=== PATIENT | female | born 1980 | race African-American/Black ===

== ENCOUNTER 2018-10-15 10:14 | Emergency (ER) | payer MEDICAID, OTHER ==
[2018-10-15 10:35] VITALS: BP 124/82
--- NOTE | 2018-10-15 11:15 | UC ---
Back Pain HPI - HPI Summary HPI Summary: 4 DAYS AGO WHILE AT WORK PATIENT WAS ATTEMPTING TO BREAK DOWN PATIO TABLES WHEN SHE YANKED ON AN UMBRELLA THAT WAS STUCK. THE NEXT DAY HAD EXCRUCIATING LOW BACK PAIN. SHE DENIES ANY NUMBNESS OR TINGLING. NO SADDLE ANESTHESIA OR LOSS OF BOWEL/BLADDER CONTROL. NO PREVIOUS HISTORY OF BACK INJURY. PAIN IS KEEPING HER FROM SLEEPING. - History of Current Complaint Chief Complaint: UCBackPain Stated Complaint: BACK INJURY Time Seen by Provider: 10/15/18 10:42 Hx Obtained From: Patient Hx Last Menstrual Period: 10/09/18 Onset/Duration: Gradual Onset, Lasting Days, Still Present Timing: Constant Severity Initially: Moderate Severity Currently: Moderate Pain Intensity: 8 Pain Scale Used: 0-10 Numeric Back Pain: Is Discrete @ - LOW BACK Character: Sharp, Spasmodic Aggravating Factor(s): Movement Alleviating Factor(s): Rest, Position Associated Signs And Symptoms: Negative: Weakness, Numbness, Tingling, Bladder Incontinence, Bowel Incontinence - Allergies/Home Medications Allergies/Adverse Reactions: Allergies Allergy/AdvReac Type Severity Reaction Status Date / Time No Known Allergies Allergy Verified 10/15/18 10:35 Home Medications: Home Medications Amlodipine Besylate/Benazepril [Amlodipine-Benazepril 5-10 mg] 1 each PO [History] Latuda 60 mg PO DAILY 10/15/18 [History Confirmed 10/15/18] traZODone TAB* [Desyrel TAB*] 1 tab PO DAILY 10/15/18 [History Confirmed ] PMH/Surg Hx/FS Hx/Imm Hx Cardiovascular History: Hypertension - Surgical History Surgical History: Yes Surgery Procedure, Year, and Place: HERNIA X2 2010, 2012 WISDOM TEETH - Family History Known Family History: Positive: Non-Contributory - Social History Alcohol Use: None Substance Use Type: None Smoking Status (MU): Former Smoker Length of Time of Smoking/Using Tobacco: 120YRS Have You Smoked in the Last Year: No When Did the Patient Quit Smoking/Using Tobacco: 2009 Review of Systems All Other Systems Reviewed And Are Negative: Yes Constitutional: Positive: Negative Skin: Positive: Negative Respiratory: Positive: Negative Cardiovascular: Positive: Negative Gastrointestinal: Positive: Negative Musculoskeletal: Positive: Other: - LOW BACK PAIN Physical Exam Triage Information Reviewed: Yes Appearance: Well-Appearing, No Pain Distress, Well-Nourished Vital Signs: Initial Vital Signs Temp 98.3 F 10/15/18 10:32 Pulse 87 10/15/18 10:32 Resp 16 10/15/18 10:32 BP 124/82 10/15/18 10:32 Pulse Ox 100 10/15/18 10:32 Vital Signs Reviewed: Yes Eyes: Positive: Conjunctiva Clear ENT: Positive: Hearing grossly normal Neck: Positive: Supple Respiratory: Positive: No respiratory distress, No accessory muscle use Cardiovascular: Positive: Pulses Normal Abdomen Description: Positive: Soft Musculoskeletal: Positive: No Edema, ROM Limited @ - BACK Neurological: Positive: Alert Psychological: Positive: Age Appropriate Behavior Skin: Negative: Rashes Back Pain Course/Dx - Differential Dx/Diagnosis Provider Diagnosis: Low back strain Discharge - Sign-Out/Discharge Documenting (check all that apply): Patient Departure All imaging exams completed and their final reports reviewed: No Studies - Discharge Plan Condition: Stable Disposition: HOME Prescriptions: Cyclobenzaprine TAB* [Flexeril TAB*] 10 mg PO BID PRN #30 tab PRN Reason: Pain Naproxen [Naproxen 500 mg tab] 500 mg PO BID PRN #30 tablet PRN Reason: Pain Patient Education Materials: Low Back Strain (ED) Forms: *Work Release Referrals: Marisela Villela MD [Primary Care Provider] - If Needed Additional Instructions: BE SURE TO GO THROUGH SLOW RANGE OF MOTION AND STRETCHING EXERCISES DAILY YOU ARE ABLE TO PREVENT STIFFENING UP AND MAKING THE DISCOMFORT WORSE. GO TO THE ED WITHOUT FAIL IF YOU DEVELOP WORSENING NUMBNESS/TINGLING IN YOUR LEGS, NUMBNESS IN THE GENITAL REGION, LOSS OF BOWEL/BLADDER CONTROL, INTOLERABLE PAIN OR ANY OTHER CONCERNING SYMPTOMS. - Billing Disposition and Condition Condition: STABLE Disposition: Home
== END 2018-10-15 11:28 | disposition home or self-care (01) ==
LOC: UCEAST 10:14
DX: S39.012A Strain of muscle, fascia and tendon of lower back, initial encounter (principal); X50.0XXA Overexertion from strenuous movement or load, initial encounter; Y93.89 Activity, other specified; Y92.89 Other specified places as the place of occurrence of the external cause; Y99.0 Civilian activity done for income or pay; I10 Essential (primary) hypertension
CPT/HCPCS: 99202; G0463

== ENCOUNTER 2019-03-17 13:16 | Emergency (ER) | payer OTHER ==
--- OUTSIDE RECORDS SUMMARY | 2019-03-17 13:23 | XMS REPORT | Summary of Care ---
:1980 Author Organization [facility] Address [address] [address] Care Team Providers Name Role Phone Marisela Villela Primary Care Provider Reason for Visit Reason Comments Conjunctivitis pt states that son has had pink eye since the , pt's started in L eye approx. New year, now it is in the R eye (woke up this morning and R eye was matted shut) Encounter Details Date Type Department Care Team Description 03/14/2019 Office Visit [place] [facility] Duane Morris Bacterial conjunctivitis Medicine TYRONE Griffin of both eyes (Primary [address]) [place] [address] [place] [address] [phone] Allergies No Known Allergiesdocumented as of this encounter (statuses as of 03/14/2019) Medications Medication Sig Dispensed Refills Start Date End Date Status clonazePAM (KLONOPIN) Take 1 mg by mouth 0 Active 1 MG Oral Tab DAILY NEEDED. LATUDA 60 MG Oral Tab 0 07/23/2016 Active trazodone (DESYREL) 0 07/23/2016 Active 100 MG Oral Tab hydrocortisone Place 1 Appl per 28.35 g 2 08/28/2017 Active (ANUSOL-HC,PROCTOSOL-H rectum FOUR TIMES C) 2.5 % Rectal DAILY NEEDED CreamIndications: (hemorrhoid pain). Hemorrhoids, unspecified hemorrhoid type albuterol HFA Take 2 Puffs by 1 Inhaler 3 09/03/2018 Active (VENTOLIN) 108 (90 inhalation EVERY Base) MCG/ACT FOUR HOURS Inhalation Aero NEEDED (for SolnIndications: bronchospasm). Asthma, intermittent, with acute exacerbation amlodipine-benazepril TAKE ONE CAPSULE 90 Cap 3 10/11/2018 Active (LOTREL) 5-20 MG Oral BY MOUTH ONCE CapIndications: DAILY Essential hypertension, benign trimethoprim-polymyxin Place 1 Drop in 1 Bottle 0 03/14/2019 Active B (POLYTRIM) 57766-0.1 both eyes EVERY UNIT/ML-% Ophthalmic FOUR HOURS. SolutionIndications: Bacterial conjunctivitis of both eyes documented as of this encounter (statuses as of 03/14/2019) Active Problems Problem Noted Date BMI 36.0-36.9,adult 08/01/2016 Essential hypertension, benign 06/12/2013 Bipolar I disorder 06/12/2013 Mild or unspecified pre-eclampsia, unspecified as to episode of care 2011 Asthma, intermittent 07/01/2010 documented as of this encounter (statuses as of 03/14/2019) Resolved Problems Problem Noted Date Resolved Date Allergic rhinitis due to dust 05/31/2010 05/30/2011 documented as of this encounter (statuses as of 03/14/2019) Immunizations Name Administration Dates Next Due Influenza (IM) Preservative Free 12/17/2009 documented as of this encounter Social History Tobacco Use Types Packs/Day Years Used Date Former Smoker Cigarettes 0.25 12 Smokeless Tobacco: Never Used Comments: quit Dec 2008. Alcohol Use Drinks/Week oz/Week Comments Yes 0 Standard drinks or equivalent 0.0 infrequent Sex Assigned at Date Recorded Not on file Job Start Date Occupation Industry Not on file Not on file Not on file Travel History Travel Start Travel End No recent travel history available. documented as of this encounter Last Filed Vital Signs Vital Sign Reading Time Taken Comments Blood Pressure 113/68 03/14/2019 9:18 AM EST Pulse 58 03/14/2019 9:18 AM EST Temperature 36.6 03/14/2019 9:18 AM EST C (97.8 F) Respiratory Rate - - Oxygen Saturation 98% 03/14/2019 9:18 AM EST Inhaled Oxygen Concentration - - Weight 89.8 kg (198 lb) 03/14/2019 9:18 AM EST Height 157.5 cm (5' 2") 03/14/2019 9:18 AM EST Body Mass Index 36.21 03/14/2019 9:18 AM EST documented in this encounter Patient Instructions Patient InstructionsDuane Morris PA - 03/14/2019 9:20 AM ESTPlease use 1 drop each eye every 4 hours for seven days. If it has improved over three days, you may reduce the dose to one drop each eye for the remainder of the days. MAKE SURE YOU COMPLETE 7 DAYS OF TREATMENT. documented in this encounter Progress Notes Duane Morris PA - 03/14/2019 9:20 AM EST PATIENT: Masha Galarza : 1980 DATE OF SERVICE: 03/14/2019 CHIEF COMPLAINT: Chief Complaint Patient presents with Conjunctivitis pt states that son has had pink eye since the , pt's started in L eye approx. New year, now itis in the R eye (woke up this morning and R eye was matted shut) Subjective HISTORY OF PRESENT ILLNESS: Masha Galarza is a 39-y.o. female. Masha presents to the office complains of bilateral eye redness with pain, itching and discharge.She states that her son has recently been treated for pink eye. The condition has been progressivelyworsening since. She denies trauma to the eye or recent exposure to sexually transmitted diseases. No history of immunocompromised. Past Medical History: Diagnosis Date Allergic rhinitis Anemia is on iron suplement Asthma childhood, occ with exercise in cold weather. Tobacco use disorder Family History Adopted: Yes Current Outpatient Medications Medication Sig albuterol HFA (VENTOLIN) 108 (90 Base) MCG/ACT Inhalation Aero Soln Take 2 Puffs by inhalation EVERY FOUR HOURS NEEDED (for bronchospasm). amlodipine-benazepril (LOTREL) 5-20 MG Oral Cap TAKE ONE CAPSULE BY MOUTH ONCE DAILY clonazePAM (KLONOPIN) 1 MG Oral Tab Take 1 mg by mouth DAILY NEEDED. hydrocortisone (ANUSOL-HC,PROCTOSOL-HC) 2.5 % Rectal Cream Place 1 Appl per rectum FOUR TIMESDAILY NEEDED (hemorrhoid pain). LATUDA 60 MG Oral Tab trazodone (DESYREL) 100 MG Oral Tab trimethoprim-polymyxin B (POLYTRIM) 22929-5.1 UNIT/ML-% Ophthalmic Solution Place 1 Drop in both eyes EVERY FOUR HOURS. No current facility-administered medications for this visit. No Known Allergies Social History Socioeconomic History Marital status: Single Spouse name: Not on file Number of children: Not on file Years of education: Not on file Highest education level: Not on file Occupational History Not on file Social Needs Financial resource strain: Not on file Food insecurity Worry: Not on file Inability: Not on file Transportation needs Medical: Not on file Non-medical: Not on file Tobacco Use Smoking status: Former Smoker Packs/day: 0.25 Years: 12.00 Pack years: 3.00 Types: Cigarettes Smokeless tobacco: Never Used Tobacco comment: quit Dec 2008. Substance and Sexual Activity Alcohol use: Yes Alcohol/week: 0.0 standard drinks Comment: infrequent Drug use: No Sexual activity: Not Currently Partners: Female, Male Lifestyle Physical activity Days per week: Not on file Minutes per session: Not on file Stress: Not on file Relationships Social connections Talks on phone: Not on file Gets together: Not on file Attends orthodoxy service: Not on file Active member of club or organization: Not on file Attends meetings of clubs or organizations: Not on file Relationship status: Not on file Intimate partner violence Fear of current or ex partner: Not on file Emotionally abused: Not on file Physically abused: Not on file Forced sexual activity: Not on file Other Topics Concern Back Care Not Asked Bike Helmet Not Asked Blood Transfusions No Caffeine Concern Not Asked Exercise Not Asked Hobby Hazards No International Travel Not Asked Service Not Asked Occupational Exposure Not Asked Seat Belt Not Asked Self-Exams Not Asked Sleep Concern Not Asked Special Diet Not Asked Stress Concern Not Asked Weight Concern Not Asked Social History Narrative Single, lives in [place] with 1 adopted child. (sister's daughter) Son born Feb 2011 --[place]. Quit tobacco 08/2009. 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 HENT: Negative for congestion, ear discharge, ear pain and nosebleeds. Eyes: Positive for pain, discharge and redness. Negative for blurred vision, double vision and photophobia. Skin: Negative for itching and rash. Neurological: Negative for dizziness and headaches. Objective PHYSICAL EXAM: VITALS: BP 113/68 (BP Location: Right arm, Patient Position: Sitting) | Pulse 58 | Temp 97.8 F (36.6 C) (Tympanic) | Ht 5' 2" (1.575 m) | Wt 198 lb (89.8 kg) | SpO2 98% | BMI 36.21 kg/m Body mass index is 36.21 kg/m . Physical Exam Constitutional: General: She is not in acute distress. Appearance: Normal appearance. HENT: Mouth/Throat: Pharynx: No oropharyngeal exudate or posterior oropharyngeal erythema. Eyes: General: Right eye: Discharge present. Left eye: Discharge present. Pupils: Pupils are equal, round, and reactive to light. Comments: Eyes are red bilaterally without ciliary injection. Neck: Musculoskeletal: No neck rigidity or muscular tenderness. Neurological: Mental Status: She is alert. ASSESSMENT / IMPRESSION: ICD-9-CM ICD-10-CM 1. Bacterial conjunctivitis of both eyes 372.30 H10.9 trimethoprim-polymyxin B ( POLYTRIM) 09261-8.1 UNIT/ML-% Ophthalmic Solution Please use 1 drop each eye every 4 hours for seven days. If it has improved over three days, you may reduce the dose to one drop each eye for the remainder of the days. MAKE SURE YOU COMPLETE 7 DAYS OF TREATMENT. Follow up as needed Author: TYRONE Wynn 03/14/2019 09:45 documented in this encounter Plan of Treatment Health Maintenance Due Date Last Done Comments PNEUMOCOCCAL 0-64 YRS (1 of 1985 1 - PPSV23) DTaP/Tdap/Td Vaccines (1 - 1990 Tdap) INFLUENZA VACCINE (#1) 2018 12/17/2009 MAMMOGRAM (SCREENING) 2019 DIABETES SCREENING 07/25/2019 07/24/2018, 08/10/2017, 07/27/2016, Additional history exists LIPID DISORDER SCREENING 07/25/2019 07/24/2018, 08/10/2017, 07/27/2016, Additional history exists DEPRESSION SCREENING 09/04/2019 09/03/2018 HEPATITIS A IMMUNIZATION Aged Out No longer eligible SERIES based on patient's age to complete this topic HPV IMMUNIZATION SERIES Aged Out No longer eligible based on patient's age to complete this topic MENINGOCOCCAL VACCINE IMM Aged Out No longer eligible based on patient's age to complete this topic documented as of this encounter Goals Goal Patient Goal Associated Recent Patient-Stated? Author Type Problems Progress Blood Pressure Blood Pressure 113/68 No Manohar, < 140/90 (03/14/2019 MD Marisela 9:18 AM EST) Note: This is an individualized treatment (blood pressure) goal for Masha Galarza: Displayed above (on the left) is your goal for blood pressure control. Your most recent blood pressure is also shown above, on the right. You should try to achieve blood pressures that are lower than your goal listed above (on the left). Depression screen (PHQ-9) total score < 5 Depression No Marisela Villela MD Note: This is an individualized treatment (depression) goal for Masha Galarza: Displayed above is your goal for a depression screening (PHQ-9) score that would indicate good control of your depression. Weight loss vs. 18 mo max Lifestyle 0 (03/14/2019 9:18 AM EST) No Marisela Villela MD (lbs) >= 10 Note: This is an individualized lifestyle goal for Masha Galarza: Your body mass index (BMI) is more than 30. You should lose weight. A reasonable starting goal is to lose 10 pounds. Displayed above is how many pounds you have lost thus far towards your 10 pound weight loss goal. Keep a regular sleep schedule Lifestyle Marisela Adams MD Note: This is an individualized lifestyle goal for Masha Galarza: Please maintain a regular sleep schedule. This may help with some symptoms of depression. Take all prescribed medications as directed Self-management Marisela Adams MD Note: This is an individualized self-management goal for Masha Galarza: Please take all prescribed medications as directed. 1. Do not skip doses. If you cannot afford your medications, talk with your doctor. 2. Use a pill reminder system such as a pill box if needed. Your pharmacist can help you with this. 3. Contact your Pharmacy 5 days before your medication runs out. If you cannot take your medications for any reasons, talk with your doctor. 4. Please bring all of your medication bottles and inhalers (or a list of all your medications/inhalers) with you to every visit. Potential barriers to meeting all of your care plan goals will continue to be addressed on an ongoing basis. documented as of this encounter Results Not on filedocumented in this encounter Visit Diagnoses Diagnosis Bacterial conjunctivitis of both eyes documented in this encounter Insurance Payer Benefit Plan / Subscriber ID Effective Dates Phone Address Type Group [employer] [facility] xxxxxxxxxx 2012-Present [employer] (Home) [place], [place] [phone] (Work) documented as of this encounter
[2019-03-17 13:26] VITALS: BP 151/103
--- NOTE | 2019-03-17 13:27 | UC ---
Eye Complaint HPI - HPI Summary HPI Summary: Patient is a 39yo female presenting with c/o of b/l eye redness, irritation, photophobia, and burning sensation x1 week. States it began in one eye and moved to the other a couple days later. Patient states crusting in the morning and watery drainage throughout the day. Denies vision changes. States that she was treated with polymixin trimethoprim drops starting 3 days ago and symptoms have not improved. Also notes URI symptoms x2 weeks. - History of Current Complaint Chief Complaint: UCEar Stated Complaint: EYE ISSUE Hx Obtained From: Patient Hx Last Menstrual Period: 03/14/19 Pain Intensity: 5 Pain Scale Used: 0-10 Numeric - Allergies/Home Medications Allergies/Adverse Reactions: Allergies Allergy/AdvReac Type Severity Reaction Status Date / Time No Known Allergies Allergy Verified 03/17/19 13:26 PMH/Surg Hx/FS Hx/Imm Hx Cardiovascular History: Hypertension - Surgical History Surgical History: Yes Surgery Procedure, Year, and Place: HERNIA X2 2010, 2011 WISDOM TEETH - Family History Known Family History: Positive: Non-Contributory - Social History Alcohol Use: None Substance Use Type: None Smoking Status (MU): Former Smoker Length of Time of Smoking/Using Tobacco: 12YRS Have You Smoked in the Last Year: No When Did the Patient Quit Smoking/Using Tobacco: 2009 Review of Systems All Other Systems Reviewed And Are Negative: Yes Constitutional: Positive: Negative Eyes: Positive: Drainage - "watery", Eye Redness - b/l, Photophobia. Negative: Blurred Vision, Diplopia ENT: Positive: Nasal Discharge, Sinus Congestion Respiratory: Positive: Cough - nonproductive Cardiovascular: Positive: Negative Gastrointestinal: Positive: Negative Physical Exam Triage Information Reviewed: Yes Appearance: Well-Appearing, No Pain Distress, Well-Nourished Vital Signs: Initial Vital Signs Temp 95.7 F 03/17/19 13:22 Pulse 100 03/17/19 13:22 Resp 20 03/17/19 13:22 BP 151/103 03/17/19 13:22 Pulse Ox 100 03/17/19 13:22 Vital Signs Reviewed: Yes Eye Exam: Other - PERRLA. EOM intact Eyes: Positive: Conjunctiva Inflamed - b/l, Discharge - serous discharge noted in b/l eye. no purulent drainage or crusting noted ENT: Positive: Hearing grossly normal, Pharynx normal, Nasal congestion, Nasal drainage - PND, TMs normal, Uvula midline. Negative: Sinus tenderness Neck exam: Normal Neck: Positive: Supple, Nontender, No Lymphadenopathy Respiratory Exam: Normal Respiratory: Positive: Lungs clear, Normal breath sounds, No respiratory distress Cardiovascular Exam: Normal Cardiovascular: Positive: RRR Neurological: Positive: Alert Psychological: Positive: Age Appropriate Behavior Skin Exam: Normal - no erythema noted Eye Complaint Course/Dx - Course Course Of Treatment: Educated patient on viral conjunctivitis and symptomatic treatment. Instructed to follow up with pcp or ophtho referral if symptoms persist or worsen. Patient voiced understanding and agreed with treatment plan. - Differential Dx/Diagnosis Provider Diagnosis: Viral conjunctivitis of both eyes Discharge ED - Sign-Out/Discharge Documenting (check all that apply): Patient Departure All imaging exams completed and their final reports reviewed: No Studies - Discharge Plan Condition: Stable Disposition: HOME Patient Education Materials: Conjunctivitis (ED) Forms: *Work Release Referrals: Marisela Villela MD [Primary Care Provider] - If Needed Stone Aden MD [Medical Doctor] - If Needed Additional Instructions: As discussed, you have viral conjunctivitis. This is similar to the common cold and may take a couple weeks to fully resolve. Wash your hands often and do not touch your eyes. You may use over the counter drops, such as Naphcon-A or Ocuhist, for symptomatic relief. A decongestant may also provide relief of URI symptoms. Follow up with your primary care provider or the ophthalmology referral listed below if your symptoms worsen or do not begin to resolve within 7 days. - Billing Disposition and Condition Condition: STABLE Disposition: Home
== END 2019-03-17 13:58 | disposition home or self-care (01) ==
LOC: UCEAST 13:16
DX: B30.9 Viral conjunctivitis, unspecified (principal); I10 Essential (primary) hypertension; R05 Cough; R09.81 Nasal congestion; J34.89 Other specified disorders of nose and nasal sinuses; Z87.891 Personal history of nicotine dependence
CPT/HCPCS: 99211; G0463

== ENCOUNTER 2020-06-24 10:56 | Observation (INO) ==
[~2020-06-24 10:56] MED LIST: Clindamycin 900 MG/D5W BAG IVPB ONE
[2020-06-24] MEDS ORDERED: oxyCODONE SR 10 mg TAB ONE (11:53)
[2020-06-24] MEDS ORDERED: Ondansetron 4 mg VIAL 2 MG/ML 2 ml VIAL ONE (11:54)
[2020-06-24 12:15] LABS: ABS Basophils 0.1 10^3/ul (0-0.2); ABS Eosinophils 0.2 10^3/ul (0-0.6); ABS Lymphocytes 3.8 10^3/ul (1.0-4.8); ABS Monocytes 0.7 10^3/ul (0-0.8); ABS Neutrophils 10.2 10^3/ul (1.5-7.7); Eosinophil % 1.3 %; Hematocrit 32 % (35-47); Lymphocyte % 25.6 %; Mean Corpuscular HGB Conc 31 g/dL (31-36); Mean Corpuscular Hemoglobin 21 pg (27-31); Mean Corpuscular Volume 67 fL (80-97); Mean Platelet Volume 8.4 fL (7.4-10.4); Platelet Count 424 10^3/uL (150-450); Red Blood Count 4.75 10^6 /uL (3.70-4.87); Red Cell Distribution Width 17 % (10-15); White Blood Count 14.9 10^3/uL (3.5-10.8)
[2020-06-24 12:17] LABS: INR 1.12 (0.82-1.09)
[2020-06-24 12:22] LABS: HCG Pregnancy < 0.60 mIU/mL
[2020-06-24] MEDS ORDERED: Lidocaine 1% VIAL 10 MG/ML VIAL ONE (12:34)
[2020-06-24] MEDS ORDERED: Heparin 2 UNITS/ML IVPREMIX 3,000 UNIT/1,500 ML BAG IV ONE (12:34)
[2020-06-24] MEDS ORDERED: Iohexol 350 (CONTRAST) 200 ML MDV IV ONE ×2 (12:34→14:24)
[2020-06-24] MEDS ORDERED: Midazolam 5 mg/5 ml VIAL 1 mg/ml 5 ml VIAL (5 mg) ONE (12:41)
[2020-06-24] MEDS ORDERED: fentaNYL 250 mcg/5 ml 50 MCG/ML 5 ml VIAL (250 MCG) ONE (12:41)
[2020-06-24] MEDS ORDERED: nitroGLYCERIN DRIP 25,000 MCG/250 ML BTL ONE (12:43)
[2020-06-24 13:17] LABS: Anion Gap 10 mmol/L (2-11); Blood Urea Nitrogen 7 mg/dL (6-24); CO2 Carbon Dioxide 25 mmol/L (22-32); Chloride 104 mmol/L (101-111); EGFR African American 98.5 (>60); EGFR Non-African American 81.4 (>60); Glucose 96 mg/dL (70-100); Potassium 3.3 mmol/L (3.5-5.0); Sodium 139 mmol/L (135-145)
[2020-06-24] MEDS ORDERED: HYDROmorphone 1 MG/1 ML SYRINGE ONE ×2 (13:51→14:22)
[2020-06-24] MEDS ORDERED: HYDROmorphone PCA 1 MG/ML Titrat per Protocol PCA SCH (14:00)
[2020-06-24] MEDS ORDERED: NS 0.9% 1000 ml BAG 1,000 ML IV SCH ×2 (18:23→18:45)
[2020-06-24] MEDS: Ondansetron 4 mg VIAL 2 MG/ML 2 ml VIAL IV SCH (19:49)
[2020-06-25] MEDS: Ondansetron 4 mg VIAL 2 MG/ML 2 ml VIAL IV SCH ×2 (01:53→07:50)
[2020-06-25 08:03] LABS: Hematocrit 35 % (35-47); Hemoglobin 10.7 g/dL (12.0-16.0); Mean Corpuscular HGB Conc 31 g/dL (31-36); Mean Corpuscular Hemoglobin 21 pg (27-31); Mean Corpuscular Volume 68 fL (80-97); Platelet Count 433 10^3/uL (150-450); Red Blood Count 5.09 10^6 /uL (3.70-4.87); Red Cell Distribution Width 17 % (10-15); White Blood Count 21.2 10^3/uL (3.5-10.8)
[2020-06-25] MEDS ORDERED: HYDROcodone/ACETAMIN 5/325 mg TAB PO PRN (08:43)
[2020-06-25] MEDS ORDERED: Ketorolac 10 mg TAB (NF) PO SCH (09:00)
[2020-06-25 11:20] VITALS: BP 156/94
== END 2020-06-25 11:52 | disposition home or self-care (01) ==
LOC: CHICATH 10:56 → SSU 10:56
PROVIDERS: ADMIT Internal Medicine; ATTEND Internal Medicine